=== PATIENT | male | born 1985 | race Caucasian/White ===

== ENCOUNTER 2018-12-30 08:25 | Emergency (ER) | payer OTHER ==
[~2018-12-30] VITALS: Ht 185.4 cm; Wt 84.8 kg
[2018-12-30 08:27] VITALS: BP 156/107
--- NOTE | 2018-12-30 08:30 | NUR ---
PT IN WHEELCHAIR TO ER BED 03
--- NOTE | 2018-12-30 08:32 | NUR ---
33/M BIB MOTHER c/o left foot swollen and red, + pedal pulses, cms intact. pt jumped off ladder yesterday morning. PATIENT POSITIONED FOR COMFORT; L FOOT ELEVATED; BEDRAILS UP X2; BED DOWN. ER MD MADE AWARE OF PT STATUS.
--- NOTE | 2018-12-30 08:34 | NUR ---
Patient being evaluated by DR DELGADO at bedside.
--- NOTE | 2018-12-30 08:34 | NUR ---
X RAY AT BEDSIDE
[2018-12-30] MEDS ORDERED: HYDROcodone/APAP 5/325 MG 1 TAB TAB PO ONE (09:50)
--- NOTE | 2018-12-30 10:10 | NUR ---
Patient discharged with v/s stable. Written and verbal after care instructions given and explained. Patient alert, oriented and verbalized understanding of instructions. Ambulatory with CRUTCHES gait. All questions addressed prior to discharge. ID band removed. Patient advised to follow up with PMD. Rx of NORCO & NAPROSYN given. Patient educated on indication of medication including possible reaction and side effects. Opportunity to ask questions provided and answered.
[2018-12-30 10:13] VITALS: BP 127/90
== END 2018-12-30 10:10 | disposition home or self-care (01) ==
LOC: MED 08:25
DX: S92.002A Unspecified fracture of left calcaneus, initial encounter for closed fracture (principal); W17.89XA Other fall from one level to another, initial encounter; Y93.39 Activity, other involving climbing, rappelling and jumping off; Y92.89 Other specified places as the place of occurrence of the external cause; Y99.8 Other external cause status
CPT/HCPCS: 29515; 73610; 73650; 99283

== ENCOUNTER 2019-03-28 14:08 | Emergency (ER) | payer OTHER ==
[~2019-03-28] VITALS: Ht 185.4 cm; Wt 83.9 kg
[2019-03-28 14:12] VITALS: BP 152/92
--- NOTE | 2019-03-28 14:21 | NUR ---
PT AMBULATED WITH CRUTCHES TO ER BED 02
--- NOTE | 2019-03-28 14:42 | NUR ---
BIB SELF.PT AAO X4 C/O SOB SINCE THIS AM, FELLING ANXIOUS, COUGH WITH SOME FLAMES THIS AM, ABD PAIN, N/V X 2 DAYS. PT CONNECTED TO MONITOR, O2 SATURATION 96%B ON RA. EVEN BREATHING, NON-LABORED, LUNGS SOUNDS CLEAR BILATERALLY. DENIES ANY CHEST PAIN, ANY DIZINESS AT THIS TIME. URINE SAMPLE OBTAINED. ER MD TO SEE THE PT. PUT HOB UP AT 30 DEGREE, BED TA LOWER POSITION. WILL CONITIUE TO MONITOR PT. MED HX: ASTHMA MED RX: DENIES ALLERGIES: PEANUTS
--- NOTE | 2019-03-28 15:42 | NUR ---
CHECKED ON PT. LYING COMFORTABLY IN HIS BED. NO S/SX OF DISTRESS NOTED. O2 SAT 95% ON RA. WILL CONTINUE TO MONITOR PT.
--- NOTE | 2019-03-28 15:53 | NUR ---
Patient discharged with v/s stable. Written and verbal after care instructions given and explained. Patient alert, oriented and verbalized understanding of instructions. Ambulatory with steady gait. All questions addressed prior to discharge. ID band removed. Patient advised to follow up with PMD. Rx of AUGMENTIN, ROBITUSSIN given. Patient educated on indication of medication including possible reaction and side effects. Opportunity to ask questions provided and answered.
[2019-03-28 16:00] VITALS: BP 140/102
== END 2019-03-28 15:53 | disposition home or self-care (01) ==
LOC: MED 14:08
DX: J20.9 Acute bronchitis, unspecified (principal); J45.909 Unspecified asthma, uncomplicated; Z91.010 Allergy to peanuts
CPT/HCPCS: 71045; 99283

== ENCOUNTER 2020-03-12 16:20 | Emergency (ER) | payer OTHER ==
[~2020-03-12] VITALS: Ht 182.9 cm; Wt 86.2 kg
[2020-03-12 16:35] VITALS: BP 148/95
--- NOTE | 2020-03-12 16:40 | NUR ---
URINE CUP HANDED TO PT FOR SAMPLE
--- NOTE | 2020-03-12 17:07 | NUR ---
Patient ambulated to bed 1. RN evaluating patient at bedside.
--- NOTE | 2020-03-12 17:15 | NUR ---
34/M C/O SUDDEN ONSET OF RIGHT FLANK PAIN NON RADIATINGX 2 DAYS PAIN IS CRAMPY/SHARP. DENIES N/V/D, F/C, DYSURIA, HEMATURIA, INJURY HX--HTN RX---LISINOPRIL
--- NOTE | 2020-03-12 17:30 | NUR ---
MANUEL HERRERA EVALUATING PT AT BEDSIDE
[2020-03-12 18:18] LABS: BASOPHILS # (AUTO) 0.1 K/uL (0.00-0.22); BASOPHILS % (AUTO) 0.9 % (0.0-2.0); EOSINOPHILS # (AUTO) 0.1 K/uL (0-0.4); EOSINOPHILS % (AUTO) 1.1 % (0.0-4.0); HEMATOCRIT 46.2 % (36-52); HEMOGLOBIN 15.6 g/dL (12.0-18.0); LYMPHOCYTES # (AUTO) 1.9 K/uL (2.0-11.5); MEAN CORPUSCULAR HEMOGLOBIN 30 pg (27-31); MEAN CORPUSCULAR HGB CONC 34 g/dL (33-37); MEAN CORPUSCULAR VOLUME 88.1 fL (80-94); MONOCYTES # (AUTO) 0.6 K/uL (0.8-1.0); MONOCYTES % (AUTO) 5.3 % (1.7-9.3); NEUTROPHILS # (AUTO) 9.2 K/uL (1.8-7.7); NEUTROPHILS % (AUTO) 76.7 % (42.2-75.2); PLATELET COUNT (AUTO) 215 K/uL (140-450); RED BLOOD CELL COUNT(AUTO) 5.24 MIL/uL (4.20-6.10); RED CELL DISTRIBUTION WIDTH 13.2 % (11.6-13.7)
[2020-03-12 18:25] LABS: APPEARANCE,URINE CLEAR (CLEAR); BILIRUBIN,URINE NEGATIVE (NEGATIVE); BLOOD, URINE TRACE-I (NEGATIVE); COLOR,URINE YELLOW (YELLOW); LEUKOCYTE ESTERASE ,URINE NEGATIVE (NEGATIVE); NITRITE, URINE NEGATIVE (NEGATIVE); PH,URINE 5.5 (5.0-9.0); UGLUCOSE NEGATIVE (NEGATIVE)
[2020-03-12 18:38] LABS: ANION GAP 13.7 (8-16); CARBON DIOXIDE 29.4 mmol/L (21-32); CREATININE 1.3 mg/dL (0.6-1.3); POTASSIUM 4.1 mmol/L (3.5-5.1); TOTAL BILIRUBIN 0.3 mg/dL (0.0-1.0)
--- NOTE | 2020-03-12 18:48 | NUR ---
Patient discharged with v/s stable. Written and verbal after care instructions given and explained. Patient verbalized understanding. Ambulatory with steady gait. All questions addressed prior to discharge. Advised to follow up with PMD.
[2020-03-12 18:49] VITALS: BP 141/92
== END 2020-03-12 18:48 | disposition home or self-care (01) ==
LOC: MED 16:20
DX: R10.9 Unspecified abdominal pain (principal); J45.909 Unspecified asthma, uncomplicated
CPT/HCPCS: 36415; 80053; 81003; 85025; 99284

== ENCOUNTER 2020-03-24 15:57 | Emergency (ER) | payer OTHER ==
[~2020-03-24] VITALS: Ht 182.9 cm; Wt 88.0 kg
[2020-03-24 16:34] VITALS: BP 114/80
--- NOTE | 2020-03-24 16:37 | NUR ---
PT PLACED IN ER LOBBY TO WAIT FOR AVAILABLE BED.
--- NOTE | 2020-03-24 16:40 | NUR ---
PT PLACED IN CHAIR A.
--- NOTE | 2020-03-24 17:00 | NUR ---
34/M c/o left side pain x3 days. Patient denies any injury or trauma. Pt explains pain is worse with deep inhalation, cough or palpation. He denies any recent injuries, heavy lifting. Denies any fever or chills. Patient denies any s/sx of UTI. Denies recent travel.
[2020-03-24 17:40] VITALS: BP 114/80
--- NOTE | 2020-03-24 17:40 | NUR ---
Patient discharged with v/s stable. Written and verbal after care instructions given and explained. Patient alert, oriented and verbalized understanding of instructions. Ambulatory with steady gait. All questions addressed prior to discharge. ID band removed. Patient advised to follow up with PMD. Rx of Ibuprofen 600mg and Acetaminophen 500mg given. Patient educated on indication of medication including possible reaction and side effects. Opportunity to ask questions provided and answered.
== END 2020-03-24 17:40 | disposition home or self-care (01) ==
LOC: MED 15:57
DX: S39.011A Strain of muscle, fascia and tendon of abdomen, initial encounter (principal); I10 Essential (primary) hypertension; J45.909 Unspecified asthma, uncomplicated; X58.XXXA Exposure to other specified factors, initial encounter; Y93.89 Activity, other specified; Y92.89 Other specified places as the place of occurrence of the external cause; Y99.8 Other external cause status
CPT/HCPCS: 81002; 99282

== ENCOUNTER 2022-01-13 14:06 | Emergency (ER) | payer OTHER ==
--- NOTE | 2022-01-13 14:19 | NUR ---
PATIENT LEFT WITHOUT BEING SEEN BY DR. HILLMAN. NO FURTHER CARE PROVIDED FOR PATIENT.
--- NOTE | 2022-01-13 14:19 | NUR ---
PATIENT WALKED INTO TRIAGE AND STATES "NEVERMIND I DON'T WANT TO BE SEEN; I'LL WAIT TO SEE MY PRIMARY." CHARGE NURSE/ADMITTING MADE AWARE.
== END 2022-01-13 14:19 | disposition left against medical advice (07) ==
LOC: MED 14:06
DX: M25.529 Pain in unspecified elbow (principal); Z53.21 Procedure and treatment not carried out due to patient leaving prior to being seen by health care provider

== ENCOUNTER 2022-09-30 00:58 | Emergency (ER) | payer OTHER ==
[~2022-09-30] VITALS: Ht 182.9 cm; Wt 90.7 kg
[2022-09-30 01:15] VITALS: BP 122/78
--- NOTE | 2022-09-30 01:19 | NUR ---
TO LOBBY A/W BED VIA W/C
--- NOTE | 2022-09-30 02:21 | NUR ---
Patient taken to X-ray via WC.
[2022-09-30] MEDS ORDERED: KETOROLAC 60 MG/2 ML VIAL IM ONE (02:45)
--- NOTE | 2022-09-30 02:52 | NUR ---
Dr. Chisholm examining patient.
--- NOTE | 2022-09-30 03:02 | NUR ---
pt to 12
[2022-09-30] MEDS ORDERED: NAPR-54 PO (03:42)
[2022-09-30 04:02] VITALS: BP 122/78
--- NOTE | 2022-09-30 04:02 | NUR ---
Patient discharged with v/s stable. Written and verbal after care instructions given and explained. Patient alert, oriented and verbalized understanding of instructions. Wheel Chair Assisted with steady gait. All questions addressed prior to discharge. ID band removed. Patient advised to follow up with PMD. Rx of NAPROSYN given. Patient educated on indication of medication including possible reaction and side effects. Opportunity to ask questions provided and answered.
== END 2022-09-30 04:02 | disposition home or self-care (01) ==
LOC: MED 00:58
DX: S82.832A Other fracture of upper and lower end of left fibula, initial encounter for closed fracture (principal); J45.909 Unspecified asthma, uncomplicated; I10 Essential (primary) hypertension; Z79.899 Other long term (current) drug therapy; X50.1XXA Overexertion from prolonged static or awkward postures, initial encounter; Y93.02 Activity, running; Y92.89 Other specified places as the place of occurrence of the external cause; Y99.8 Other external cause status
CPT/HCPCS: 29515; 73610; 73630; 96372; 99284; J1885

== ENCOUNTER 2023-04-09 11:07 | Emergency (ER) | payer OTHER ==
[~2023-04-09] VITALS: Ht 182.9 cm; Wt 90.7 kg
[~2023-04-09 11:07] MED LIST: NAPR-54 PO
[2023-04-09 11:18] VITALS: BP 146/103; PULSE 88; RESP 20; TEMP 96.8; O2SAT 99
== END 2023-04-09 13:07 | disposition home or self-care (01) ==
LOC: MED 11:07
DX: K62.5 Hemorrhage of anus and rectum (principal); J45.909 Unspecified asthma, uncomplicated; I10 Essential (primary) hypertension; Z79.899 Other long term (current) drug therapy
CPT/HCPCS: 99281

== ENCOUNTER 2023-06-05 13:39 | Emergency (ER) | payer OTHER ==
[~2023-06-05] VITALS: Ht 182.9 cm; Wt 90.7 kg
[2023-06-05 13:53] VITALS: BP 154/101; PULSE 99; RESP 14; TEMP 97.8; O2SAT 97
[2023-06-05 15:35] LABS: BASOPHILS # (AUTO) 0.1 K/uL (0.00-0.22); EOSINOPHILS # (AUTO) 0.1 K/uL (0-0.4); EOSINOPHILS % (AUTO) 1.2 % (0.0-4.0); HEMOGLOBIN 14.4 g/dL (12.0-18.0); LYMPHOCYTES # (AUTO) 2.2 K/uL (2.0-11.5); LYMPHOCYTES % (AUTO) 22.2 % (20.5-51.1); MEAN CORPUSCULAR HEMOGLOBIN 30 pg (27-31); MEAN CORPUSCULAR HGB CONC 34 g/dL (33-37); MEAN CORPUSCULAR VOLUME 86.5 fL (80-94); MONOCYTES # (AUTO) 0.6 K/uL (0.8-1.0); MONOCYTES % (AUTO) 5.9 % (1.7-9.3); NEUTROPHILS # (AUTO) 6.8 K/uL (1.8-7.7); NEUTROPHILS % (AUTO) 69.7 % (42.2-75.2); PLATELET COUNT (AUTO) 237 K/uL (140-450); RED BLOOD CELL COUNT(AUTO) 4.86 MIL/uL (4.20-6.10); RED CELL DISTRIBUTION WIDTH 12.5 % (11.6-13.7); WHITE BLOOD COUNT (AUTO) 9.7 K/uL (4.8-10.8)
[2023-06-05 15:51] LABS: INR 0.94 (0.8-1.2); PARTIAL THROMBOPLASTIN TIME 25.2 secs (22-35.6); PROTHROMBIN TIME 9.9 secs (10.8-13.4)
[2023-06-05 15:54] LABS: ALBUMIN 3.8 g/dL (3.4-5.0); ANION GAP 9.7 (8-16); CALCIUM 9.4 mg/dL (8.5-10.1); CARBON DIOXIDE 29.8 mmol/L (21-32); CREATININE 1.1 mg/dL (0.6-1.3); POTASSIUM 3.5 mmol/L (3.5-5.1); TOTAL BILIRUBIN 0.4 mg/dL (0.0-1.0); TOTAL PROTEIN, SERUM 7.6 g/dL (6.4-8.2)
[2023-06-05 16:55] VITALS: BP 134/81; PULSE 89; RESP 16; TEMP 98.2; O2SAT 98
== END 2023-06-05 16:55 | disposition home or self-care (01) ==
LOC: MED 13:39
DX: K62.5 Hemorrhage of anus and rectum (principal); I10 Essential (primary) hypertension; J45.909 Unspecified asthma, uncomplicated; Z79.899 Other long term (current) drug therapy
CPT/HCPCS: 36415; 80053; 85025; 85610; 85730; 99283